=== PATIENT | female | born 1950 | race Caucasian/White ===

== ENCOUNTER 2017-11-14 23:04 | Emergency (ER) | payer OTHER ==
[2017-11-14 23:12] VITALS: RESP 16; TEMP 98.2
--- NOTE | 2017-11-14 23:42 | EDPHY ---
General Time Seen by Provider: 11/14/17 23:29 Narrative: CHIEF COMPLAINT: "acute mountain sickness" HISTORY OF PRESENT ILLNESS: Patient presents with complaints of onset of "it's acute mountain sickness" this started this morning. This consists of shortness of breath, neck stiffness , racing heart rate, elevated blood pressure. Symptoms started abruptly this morning when she awoke. She has no chest pain of any kind. The symptoms were worse with movement. She did have a mild frontal headache earlier today that is resolved. She has no extremity erythema edema pain. No abdominal urinary complaints. No slurred speech or confusion per son at bedside. Patient is confident that this is acute mountain sickness and is requesting oxygen only. She is declining IV placement. She is declining laboratory studies or any medications of any kind. She says that this is exactly the same as previous episodes that were diagnosis acute mountain sickness and she declined medications in those scenarios as well. She is traveling from [facility] by car, arriving here 2 days ago. No other associated complaints or modifying factors. REVIEW OF SYSTEMS: Ten systems reviewed and are negative unless otherwise noted in the HPI PCP: In [place], [place] SPECIALISTS: None PAST MEDICAL HISTORY: Hypertension, acute mountain sickness PAST SURGICAL HISTORY: No recent surgeries SOCIAL HISTORY: Nonsmoker. Lives in [facility]. Works as a musician professionally FAMILY HISTORY: Noncontributory EXAMINATION General Appearance: Alert, no distress Head: normocephalic, atraumatic Eyes: Pupils equal and round, no conjunctival pallor or injection ENT, Mouth: Mucous membranes moist. Airway widely patent Neck: Normal inspection, supple, non-tender. No nuchal rigidity or meningeal signs. Respiratory: Lungs are clear to auscultation. No wheezing, rhonchi or crackles. No diminishment. No retractions or distress Cardiovascular: Regular rate and rhythm. No murmur. Good signs of perfusion Gastrointestinal: Abdomen is soft and nontender Back: non-tender, no bony abnormalities Neurological: GCS 15. Cranial nerves 2-12 grossly intact. A&O, nonfocal, strength is symmetric in all 4 limbs. Normal [id number]. No pronator drift. Normal mentation Skin: Warm and dry, no rash. No petechiae. No purpura Extremities: Nontender, no pedal edema Psychiatric: Mood and affect normal DIFFERENTIAL DIAGNOSES: Including but not limited to acute mountain sickness, PE, intracranial hemorrhage, hypertensive urgency, hypertensive emergency, subarachnoid hemorrhage, influenza, meningitis, dysrhythmia MDM: 11:40 p.m. Multiple symptoms with patient feeling that she has acute mountain sickness. She denies chest pain. She denies headache. She will not allow me to have an IV placed or any laboratory studies. She has consented to EKG, chest x-ray and cardiac monitoring. She is requesting nasal cannula oxygen only. She is declining any medications of any kind, IV or p.o.. Her vital signs are normal with exception pressure. She is awake and alert. She is in no acute distress with no altered mentation. She has no nuchal rigidity or meningeal signs. Her neuro exam is within normal limits. I do feel she is capable making the decisions that she has after risks, benefits and alternatives were discussed. 12:10 a.m. Chest x-ray has been read by radiologist as unremarkable. There is notation of ill-defined curvilinear calcification and/or nodule projecting over the right lower lobe. Radiologist recommends non emergent follow-up CT of the chest to better evaluate. I have informed the patient of this and re-evaluated at this time. 12:15 a.m. Patient re-evaluated. She has been on oxygen nasal cannula for 30 min and feels that her symptoms are nearly completely resolved. Her blood pressure is within normal limits. She no longer has any neck pain or stiffness. Her heart rate feels normal to her and is by our campus monitor. She is asking to be discharged home without any further intervention or medication. She is very satisfied and would like to be discharged. She is well-appearing with normal vital signs in no acute distress. She did have an incidental finding are chest x-ray that I have discussed with her. We will provide a copy of her chest x- ray and the report for her to follow up. She has a primary care physician visit on the 27 of November. EKG interpretation: Dr. Flores SUPERVISION: Patient was independently examined, but I discussed the case with my secondary supervising physician Dr. Flores - Diagnostics Imaging Results: Imaging Impressions Chest X-Ray 11/14/17 23:29 Impression: 1. No acute thoracic abnormality. 2. Ill-defined curvilinear calcification and/or nodule projecting over the right lower lobe. Recommend nonemergent follow-up CT chest to better evaluate. - History Smoking Status: Never smoked - Objective Vital Signs: Initial Vital Signs Temperature (C) 98.2 F 11/14/17 23:07 Heart Rate 69 11/14/17 23:07 Respiratory Rate 16 11/14/17 23:07 Blood Pressure 215/96 H 11/14/17 23:07 O2 Sat (%) 95 11/14/17 23:07 O2 Delivery Mode Room Air Allergies/Adverse Reactions: No Known Allergies Allergy (Unverified 11/14/17 23:12) Home Medications: Medication Instructions Recorded Olmesartan Medoxomil 11/14/17 Departure - Departure Disposition: Home, Routine, Self-Care Clinical Impression: Acute mountain sickness, Abnormal x-ray of lungs with single pulmonary nodule Condition: Good Instructions: Mountain Sickness (ED) Additional Instructions: 1. Recommend increase fluid intake 2. Follow up with primary care physician upon return home to [place] to discussed the incidental finding on her chest x-ray 3. Ibuprofen 600 mg every 8 hr as needed 4. ED precautions as discussed Referrals: NONE *PRIMARY CARE P,. [Primary Care Provider] - As per Instructions
--- NOTE | 2017-11-14 23:43 | CPEKG ---
Heart Rate: 56 RR Interval: 1071 P-R Interval: 164 QRSD Interval: 80 QT Interval: 424 QTC Interval: 410 P [place]: 73 QRS [place]: 33 T Wave [place]: 76 EKG Severity - ABNORMAL ECG - EKG Impression: SINUS RHYTHM EKG Impression: LEFT VENTRICULAR HYPERTROPHY Electronically Signed By: Hever Flores 15-Nov-2017 05:41:22
[2017-11-15 00:38] VITALS: BP 171/87; PULSE 64; O2SAT 96
== END 2017-11-15 00:37 | disposition home or self-care (01) ==
DX: D75.1 Secondary polycythemia (principal); R91.8 Other nonspecific abnormal finding of lung field; I10 Essential (primary) hypertension